=== PATIENT | male | born 1960 | race Caucasian/White ===

== ENCOUNTER 2017-03-01 12:48 | Emergency (ER) | payer MEDICARE, OTHER ==
[2017-03-01] MEDS ORDERED: NORMAL SALINE 1000 ML 2,000 ML IV ONE (13:20)
[2017-03-01] MEDS ORDERED: VANCOMYCIN HCL INJ 1000 MG VIAL IV ONE (13:41)
[2017-03-01] MEDS ORDERED: CEFEPIME 2 GM/D5W RTU 50 ML IV ONE (13:42)
--- NOTE | 2017-03-01 13:45 | ER Document Report ---
ED Skin Rash/Insect Bite/Abscs - General Mode of Arrival: Medic Information source: Patient TRAVEL OUTSIDE OF THE [place] IN LAST 30 DAYS: No <MATTHEW HOSKINS - Last Filed: 03/01/17 17:34> <RED BORREGO - Last Filed: 03/01/17 19:43> - General Stated Complaint: BOIL ON BUTTOCKS Time Seen by Provider: 03/01/17 13:20 Notes: 56-year-old obese type II diabetic with a history of MRSA ankle joint, has new abscess with worsening erythema , cellulitis to left buttocks for at least 4 days. His younger daughter lives with him and when his older daughter checked on him today he has been a little confused for a couple days. Refused to come to the emergency room yesterday but today when he became very dizzy and couldn' t get up or get out of the living room ambulance came and picked him up. Blood pressure is 88 systolic at this time I have 3 L normal saline infusing, I started a second peripheral IV for vancomycin 2 g IV and cefepime 2 g IV. The lab is here to get blood cultures, lactic acid, comprehensive and CBC. Hope catheter will be inserted. I consulted with Dr. Red Borrego for management of the patient. (MATTHEW HOSKINS) - Related Data Allergies/Adverse Reactions: No Known Allergies Allergy (Unverified 03/01/17 17:16) Home Medications: Current Home Medications Gabapentin [Neurontin] 600 mg PO QHS 03/01/17 [History] Glipizide [Glocotrol 5 Mg Tablet] 5 mg PO DAILY 03/01/17 [History] Hydrocodone/Acetaminophen [Hydrocodon-Acetaminophn 10-325] 1 tab PO Q6HP PRN [History] Lisinopril/Hydrochlorothiazide [Lisinopril-Hctz 20-12.5 mg Tab] 1 tab PO DAILY 03/01/17 [History] Pioglitazone HCl [Actos 15 mg Tablet] 15 mg PO DAILY 03/01/17 [History] Simvastatin 40 mg PO QHS 03/01/17 [History] Tizanidine HCl [Zanaflex 4 Mg Tablet] 4 mg PO Q8HP PRN 03/01/17 [History] Tramadol HCl [Ultram 50 mg Tablet] 50 mg PO TIDP PRN 03/01/17 [History] Past Medical History - General Information source: Patient - Social History Smoking Status: Current Every Day Smoker Frequency of alcohol use: None Drug Abuse: None Lives with: Family - daughter Family History: DM Endocrine Medical History: Reports: Hx Diabetes Mellitus Type 2 Skin Medical History: Reports Hx MRSA - right hip Surgical Hx: Negative <MATTHEW HOSKINS - Last Filed: 03/01/17 17:34> Review of Systems - Review of Systems Constitutional: No symptoms reported EENT: No symptoms reported Cardiovascular: No symptoms reported Respiratory: No symptoms reported Gastrointestinal: No symptoms reported Genitourinary: No symptoms reported Male Genitourinary: No symptoms reported Musculoskeletal: No symptoms reported Skin: See HPI Hematologic/Lymphatic: No symptoms reported Neurological/Psychological: See HPI <MATTHEW HOSKINS - Last Filed: 03/01/17 17:34> Physical Exam - Vital signs Interpretation: Hypotensive - General General appearance: Alert In distress: Mild - due to buttocks pain - HEENT Head: Normocephalic, Atraumatic Eyes: Normal Conjunctiva: Normal Pupils: PERRL Mucous membranes: Dry Neck: Supple. No: Lymphadenopathy - Respiratory Respiratory status: No respiratory distress Chest status: Nontender Breath sounds: Normal Chest palpation: Normal - Cardiovascular Rhythm: Regular Heart sounds: Normal auscultation Murmur: No - Abdominal Inspection: Normal Distension: No distension Bowel sounds: Normal Tenderness: Nontender. No: Tender Organomegaly: No organomegaly - Rectal Tenderness: Yes - Back Back: Normal, Nontender. No: Tender - Extremities General upper extremity: Normal inspection, Nontender, Normal color, Normal ROM , Normal temperature General lower extremity: Normal inspection, Nontender, Normal color, Normal ROM , Normal temperature, Normal weight bearing. No: Brenda's sign - Neurological Neuro grossly intact: Yes Cognition: Normal Orientation: AAOx4 [place] Coma Scale Eye Opening: Spontaneous [place] Coma Scale Verbal: Oriented [place] Coma Scale Motor: Obeys Commands [place] Coma Scale Total: 15 Speech: Normal Motor strength normal: LUE, RUE, LLE, RLE Sensory: Normal - Psychological Associated symptoms: Normal affect, Normal mood - Skin Skin Temperature: Warm Skin Moisture: Dry Skin Color: Normal <MATTHEW HOSKINS - Last Filed: 03/01/17 17:34> <RED BORREGO - Last Filed: 03/01/17 19:43> - Vital signs Vitals: Pulse Ox 95 03/01/17 13:20 - Rectal Notes: large 20 x 10 cm cellulitic abscess arising from gluteal crest to left mid buttocks (MATTHEW HOSKINS) - Skin Notes: see above (MATTHEW HOSKINS) Course - Laboratory Result Diagrams: 03/01/17 14:34 03/01/17 14:34 <MATTHEW HOSKINS - Last Filed: 03/01/17 17:34> - Laboratory Result Diagrams: 03/01/17 14:34 03/01/17 14:34 <RED BORREGO - Last Filed: 03/01/17 19:43> - Re-evaluation Re-evalutation: 03/01/17 13:[address] red borrego for pt evaluation/antibiotics 03/01/17 14:41 after blood drawn systolic bp 75, levophed titrate, starting at 10 mcg/m. 03/01/17 14:48 dr. borrego assessed for central line, she is calling the surgeon for insertion, as he has a short boudreaux neck. 03/01/17 15:00 General surgeon will be in the emergency department in [address]rego said to give the norepinephrine through the 18-gauge in the left forearm. he is not dizzy when he sits up , systolic blood pressure 79 when they get a portable chest x-ray. Verified a manual blood pressure compared to the Dinamap blood pressure earlier and they were consistent with 90 systolic. 03/01/17 15:17 blood pressure 123 systolic after 20mcg/min of levophed. levophed dropped to 8mcg/min. 03/01/17 15:[address] Atkins back and we no longer have ICU beds he wants the patient transported to another hospital and decreased the legal said to 4 mcg/min 03/01/17 15:30 pt and his daughters want him to be transferred to [facility]. Called the [facility] transfer, fax [phone], bp 114 systolic on 4mcg 03/01/17 15:35 EKG is normal sinus rhythm. The hospitalist will not accept I will have to talk to the clam dredge boat captain because he is on a norepinephrine drip. 03/01/17 16:17 Dr. Gonzalez is here to evaluate and place a central line. I am waiting for the clam dredge boat captain to call me back from [facility] 03/01/17 16:57 Dr. Gonzalez will admit to the surgery service and do the surgery to drain the abscess. He will then handle and take care of the transfer for postop care as necessary. 03/01/17 17:38 pt going to the OR (MATTHEW HOSKINS) 03/01/17 19:40 I saw and examined this patient. Large R gluteal/pilonidal abscess with cellulitis. Patient met sepsis criteria, and IV fluid resuscitation and IV abx initiated in ER. train caller surgeon consulted for central line placement and for operative management of pilonidal/gluteal abscess... pt required levaphed to maintain BP. Pt admitted to general surgeon for drainage... may require transfer after that secondary to no available ICU beds here at [facility]. ( RED BORREGO) - Vital Signs Vital signs: Temp Pulse Resp BP Pulse Ox 98.6 F 17 128/60 H 93 03/01/17 14:47 03/01/17 17:36 03/01/17 17:36 03/01/17 17:35 - Laboratory Laboratory results interpreted by me: 03/01/17 03/01/17 03/01/17 14:34 14:34 15:15 WBC 14.8 H RBC 4.26 L Hgb 12.3 L Hct 36.4 L RDW 14.1 H Seg Neutrophils % 83.2 H Lymphocytes % 9.4 L Absolute Neutrophils 12.4 H Sodium 127.3 L Carbon Dioxide 21 L BUN 26 H Creatinine 1.47 H Est GFR (Non-Af Amer) 49 L Glucose 155 H Calcium 7.7 L Direct Bilirubin 0.5 H Total Protein 4.7 L Albumin 2.3 L Urine Glucose (UA) 50 H Urine Blood SMALL H Critical Care Note - Critical Care Note Total time excluding time spent on procedures (mins): 50 - minutes of critical care time spent in direct contact evaluating and reevaluating the patient, treating symptoms, reviewing labs and studies and speaking with family and consultants excluding any procedures <RED BORREGO - Last Filed: 03/01/17 19:43> Discharge - Discharge Admitting Provider: Surgicalist Unit Admitted: OR <MATTHEW HOSKINS - Last Filed: 03/01/17 17:34> <RED BORREGO - Last Filed: 03/01/17 19:43> - Discharge Clinical Impression: Cellulitis and abscess of buttock, hypotension, Type 2 diabetes mellitus Sepsis Qualifiers: Sepsis type: sepsis due to unspecified organism Qualified Code(s): A41.9 - Sepsis, unspecified organism Condition: Serious Disposition: ADMITTED INPATIENT
[2017-03-01] MEDS ORDERED: DEXTROSE 5%-WATER 250 ML with NOREPINEPHRINE BITARTRATE 4 MG IV PRN ×2 (14:39)
[2017-03-01] MEDS ORDERED: LIDOCAINE 2% URO-JET 5 ML KIT MM ONE (14:40)
[2017-03-01] MEDS ORDERED: NORMAL SALINE 1000 ML 1,000 ML IV ONE ×2 (14:47→15:04)
[2017-03-01] MEDS ORDERED: NOREPINEPHRINE BITARTRATE INJ/PF 4 MG/4 ML SDV IV ONE (14:48)
[2017-03-01 14:57] LABS: ABSOLUTE EOSINOPHILS # (AUTO) 0.1 10^3/uL (0.0-0.6); ABSOLUTE LYMPHOCYTES (AUTO) 1.4 10^3/uL (0.5-4.7); ABSOLUTE MONOCYTES (AUTO) 0.9 10^3/uL (0.1-1.4); ABSOLUTE NEUT (AUTO) 12.4 10^3/uL (1.7-8.2); BASOPHILS % (AUTO) 0.3 % (0-2); EOSINOPHILS % (AUTO) 0.7 % (0-6); HEMATOCRIT 36.4 % (37.9-51.0); HEMOGLOBIN 12.3 g/dL (13.5-17.0); HGB HCT DIFFERENCE 0.5; LYMPHOCYTES % (AUTO) 9.4 % (13-45); MEAN CORPUSCULAR HEMOGLOBIN 28.9 pg (27.0-33.4); MEAN CORPUSCULAR HGB CONC 33.8 g/dL (32.0-36.0); MEAN CORPUSCULAR VOLUME 86 fl (80-97); MONOCYTES % (AUTO) 6.4 % (3-13); RED BLOOD COUNT 4.26 10^6/uL (4.35-5.55); RED CELL DISTRIBUTION WIDTH 14.1 % (11.5-14.0); SEGMENTED NEUTROPHILS % (AUTO) 83.2 % (42-78); WHITE BLOOD COUNT 14.8 10^3/uL (4.0-10.5)
[2017-03-01 15:15] LABS: ALANINE AMINOTRANSFERASE 27 U/L (21-72); ALBUMIN 2.3 g/dL (3.5-5.0); ALKALINE PHOSPHATASE 60 U/L (38-126); ANION GAP 5 (5-19); ASPARTATE AMINO TRANSFERASE 25 U/L (17-59); BILIRUBIN,DIRECT 0.5 mg/dL (0.0-0.4); BILIRUBIN,TOTAL 0.7 mg/dL (0.2-1.3); BLOOD UREA NITROGEN 26 mg/dL (7-20); CALCIUM 7.7 mg/dL (8.4-10.2); CARBON DIOXIDE 21 mmol/L (22-30); CHLORIDE 101 mmol/L (98-107); CREATININE RESULT 1.47 mg/dL (0.52-1.25); GLUCOSE 155 mg/dL (75-110); POTASSIUM 4.6 mmol/L (3.6-5.0); SODIUM 127.3 mmol/L (137-145); TOTAL PROTEIN 4.7 g/dL (6.3-8.2)
[2017-03-01 15:46] LABS: APPEARANCE,URINE CLEAR; BILIRUBIN,URINE NEGATIVE (NEGATIVE); GLUCOSE, URINE 50 mg/dL (NEGATIVE); KETONES,URINE NEGATIVE (NEGATIVE); LEUKOCYTE ESTERASE,URINE NEGATIVE (NEGATIVE); NITRITE,URINE NEGATIVE (NEGATIVE); PROTEIN,URINE NEGATIVE (NEGATIVE); URINE SPECIFIC GRAVITY 1.008; UROBILINOGEN,URINE NEGATIVE mg/dL (<2.0)
[2017-03-01] MEDS ORDERED: FENTANYL CITRATE INJ/PF 100 MCG/2 ML AMPUL ONE ×2 (16:58→16:59)
[2017-03-01] MEDS ORDERED: ACETAMINOPHEN 0 ML IV ONE (16:59)
[2017-03-01] MEDS ORDERED: MORPHINE SULFATE 10 MG/ML INJ ONE (16:59)
[2017-03-01] MEDS ORDERED: PROPOFOL INJ 200 MG/20 ML VIAL IV ONE (16:59)
[2017-03-01] MEDS ORDERED: MIDAZOLAM 2 MG/2 ML INJ ONE (16:59)
[2017-03-01 17:42] VITALS: BP 128/60
--- NOTE | 2017-03-01 18:59 | HISTORY AND PHYSICAL E ---
History and Physical NAME: ROMMEL STONER : 1960 AGE: 56Y ADMITTED: 03/01/2017 ROOM: ED16 CHIEF COMPLAINT: Severe pains in the buttock with nausea and confusion. HISTORY OF PRESENT ILLNESS: This is a 56-year-old diabetic who has been complaining of pains in the buttock area for the past 4 days. Initially he felt warm and the next day he had some vomiting and then pains got worse and confused. He was finally able to be convinced by his family to come to the ER today. In the ER he was noted to have a low blood pressure in the 70s and had about 4 L of fluids. However, he remained hypotensive and then started on Levophed with blood pressure up to about 110 systolic, and he also became more alert and oriented. PAST SURGICAL HISTORY: Multiple joint surgeries for ankle surgery, knee surgery and hip replacement. He also had a MRSA infection after hip surgery. PAST MEDICAL HISTORY: He is diabetic and has hypertension. Diabetes is controlled by pills, at the present time not taking any insulin. ALLERGIES: None known. REVIEW OF SYSTEMS: As in HPI. Denies any cardiac chest pains or shortness of breath or sore throat. Pains in his right buttock with nausea, also has some pains during bowel movement. No dysuria. There are also joint pains in the knees and the ankle and takes some Tramadol and hydrocodone. MEDICATIONS: Glipizide, lisinopril, simvastatin, tizanidine for spasm and sleep, tramadol, gabapentin and hydrocodone. SOCIAL HISTORY: Smokes about a pack a day, denies alcohol or drug use. FAMILY HISTORY: Strong for diabetes: mother has diabetes and grandmother. PHYSICAL EXAMINATION: GENERAL: A well-developed, somewhat overweight male, alert and oriented, complaining of severe pains in the right buttock. HEENT: Neck is supple, no thyromegaly, no adenopathy. LUNGS: Clear. HEART: Regular sinus rhythm although with Levophed, his heart rate went up to about 110 per minute. His blood pressure is about 110 systolic on Levophed. ABDOMEN: Soft, nontender. EXTREMITIES: No edema. BACK: The right buttock is markedly swollen, red and tender. IMPRESSION: 1. Sepsis due to infected pilonidal abscess. 2. Diabetes mellitus. 3. Hypertension. 4. Hypotension due to sepsis. PLAN: The plan is to drain the abscess here in the OR and after this to transfer him to [facility]. I spoke with *------*, the surgeon at [facility], who agrees to manage the patient postoperatively. Consent was signed for incision and drainage and possible central line placement. DICTATING PHYSICIAN: RAJ NASSAR M.D. [id number] PHY#: [id number] ID: [id number] JOB#: [id number] ACCT: [id number] cc:RAJ NASSAR M.D. >
--- NOTE | 2017-03-01 22:46 | EKG REPORT ---
SEVERITY:- NORMAL ECG - SINUS RHYTHM : Confirmed by: Rsoe Marie Dumont 01-Mar-2017 22:45:01
--- NOTE | 2017-03-06 19:01 | TRANSFER SUMMARY E ---
Transfer Summary NAME: ROMMEL STONER : 1960 AGE: 56Y ADMITTED: 03/01/2017 TRANSFERRED: 03/06/2017 FINAL DIAGNOSIS: Large abscess of the buttock area with sepsis and hypotension requiring pressors. SUMMARY: This is a 56-year-old diabetic complaining of pains for about 4 days on the right buttock. His white count was markedly elevated because of his hypotension despite adequate fluid replacement with at least 4 L of saline. It was felt that the patient would be better taken care of in a facility where they have intensive care unit personnel as well as surgical personnel. At this time we did not have any ICU beds and, therefore, it is best that the patient be transferred to another hospital. I spoke to Dr. Byers at a hospital in [place] who accepted the patient who initially suggested for us to drain the patient here since it will take them a few hours before they can operate on him. Fortunately, the helicopter will be in the hospital in the next 10-20 minutes and it was felt that it was best to transfer the patient right away because Anesthesia saw the patient and they felt that he is going to be a very difficult intubation because he is obese and with shortened neck and also the history of sleep apnea. Anesthesia felt that he will be a difficult intubation and rather than attempt to drain it here in the hospital at [place] it is best to just transfer the patient since transport is almost here. Again, I spoke to the family and they all agreed to transfer the patient. I also spoke to the surgeon again, Dr Byers , at the other hospital who is willing to accept the patient and possibly take him right away to the OR as soon as he gets to their hospital. DICTATING PHYSICIAN: RAJ NASSAR M.D. [id number] PHY#: [id number] ID: [id number] JOB#: [id number] ACCT: [id number] cc:RAJ NASSAR M.D. > MTDD
== END 2017-03-01 17:48 | disposition short-term general hospital (02) ==
LOC: ER 12:48 → EH 17:25 → UNDOADMIN 17:25 → EH 17:48
DX: A41.9 Sepsis, unspecified organism (principal); L02.31 Cutaneous abscess of buttock; L03.317 Cellulitis of buttock; E11.52 Type 2 diabetes mellitus with diabetic peripheral angiopathy with gangrene; I95.9 Hypotension, unspecified; E66.9 Obesity, unspecified; Z68.36 Body mass index [BMI] 36.0-36.9, adult; Z86.14 Personal history of Methicillin resistant Staphylococcus aureus infection; R41.0 Disorientation, unspecified; R42 Dizziness and giddiness; F17.200 Nicotine dependence, unspecified, uncomplicated
CPT/HCPCS: 93005; 99291; 51702; 96365; 96366; 96367; 96368; 36415; 87040; 87086; 85025; 80053; 81001; 83605; 71010; 93010; J2250; J3010; J3490; J7060; J2704; J3370; J0692; J0131; J2270

== ENCOUNTER → 2017-07-21 | Outpatient (CLI) | payer MEDICARE ==
--- NOTE | 2017-07-21 15:21 | RADIOLOGY REPORT (SQ) ---
EXAM DESCRIPTION: VENOUS UNILATERAL UPPER COMPLETED DATE/TIME: 07/21/2017 1:47 pm REASON FOR STUDY: H/O UPPER EXT DVT Z86.718 PERSONAL HISTORY OF OTHER VENOUS THROMBOSIS AND EMBO COMPARISON: None. TECHNIQUE: Dynamic and static gracia scale and color images acquired of the right arm venous system. S elected spectral images acquired with additional compression and augmentation maneuvers. The contrala teral subclavian vein and internal jugular vein were also imaged. Images stored on PACS. LIMITATIONS: None. FINDINGS: RIGHT INTERNAL JUGULAR VEIN: Normal phasicity, compression, augmentation. No visualized echogenic material on gracia scale. No defects on color images. Comparison opposite side normal. SUBCLAVIAN VEIN: Normal compression, augmentation. No visualized echogenic material on gracia scale. No defects on color images. AXILLARY VEIN: Normal compression, augmentation. No visualized echogenic material on gracia scale. No d efects on color images. BRACHIAL VEIN: Normal compression, augmentation. No visualized echogenic material on gracia scale. No d efects on color images. BASILIC VEIN: Normal compression, augmentation. No visualized echogenic material on gracia scale. No de fects on color images. CEPHALIC VEIN: Normal compression, augmentation. No visualized echogenic material on gracia scale. No d efects on color images. OTHER: No other significant finding. LEFT SUBCLAVIAN VEIN AND INTERNAL JUGULAR VEIN: Normal phasicity, compression and augmentation. No visualized echogenic material on rgacia scale. No de fects on color images. IMPRESSION: NO EVIDENCE DVT OR SVT RIGHT ARM. TECHNICAL DOCUMENTATION: JOB ID: [id number] [employer]- All Rights Reserved
== END ==
LOC: SP 13:02
PROVIDERS: ATTEND Surgery
DX: Z86.718 Personal history of other venous thrombosis and embolism (principal); Z79.01 Long term (current) use of anticoagulants; E11.9 Type 2 diabetes mellitus without complications; I10 Essential (primary) hypertension
CPT/HCPCS: 93971